=== PATIENT | female | born 1970 | race Caucasian/White ===

== ENCOUNTER 2023-01-27 09:05 | Outpatient (OUT) | payer BC, SELFPAY ==
--- NOTE | 2023-01-27 | XR_ITS ---
The [address] [address] Patient Name: KEISHA VERONICA MRN: [id number] date: 1970 Sex: F Assigned Patient Location: [facility] Current Patient Location: Accession/Order Number: [id number] Exam Date: 01/27/2023 09:07 Report Date: 01/28/2023 07:51 At the request of: ED MERCER Procedure: XR ankle RT min 3V PROCEDURE: XR foot RT min 3V, XR ankle RT min 3V HISTORY: RIGHT FOOT PAIN COMPARISON: XR foot and ankle right 03/25/2022 FINDINGS: BONES:No fracture, acute abnormality, or significant arthropathy. SOFT TISSUES:No visible soft tissue swelling. EFFUSION:None visible. OTHER: Negative. XR/XR ankle RT min 3V IMPRESSION: 1. Stable appearance of right ankle and foot. 2. No acute bone abnormality or significant degenerative changes. Electronically authenticated by: VAL CANTU Date: 01/28/2023 07:51
--- NOTE | 2023-01-27 | XR_ITS ---
The [address] [address] Patient Name: KEISHA VERONICA MRN: [id number] date: 1970 Sex: F Assigned Patient Location: [facility] Current Patient Location: Accession/Order Number: [id number] Exam Date: 01/27/2023 09:07 Report Date: 01/28/2023 07:51 At the request of: ED MERCER Procedure: XR foot RT min 3V PROCEDURE: XR foot RT min 3V, XR ankle RT min 3V HISTORY: RIGHT FOOT PAIN COMPARISON: XR foot and ankle right 03/25/2022 FINDINGS: BONES:No fracture, acute abnormality, or significant arthropathy. SOFT TISSUES:No visible soft tissue swelling. EFFUSION:None visible. OTHER: Negative. XR/XR foot RT min 3V IMPRESSION: 1. Stable appearance of right ankle and foot. 2. No acute bone abnormality or significant degenerative changes. Electronically authenticated by: VAL CANTU Date: 01/28/2023 07:51
== END 2023-01-27 09:06 | disposition home or self-care (01) ==
LOC: RAD 09:05
PROVIDERS: PCP Nurse Practitioner Family; Visit Provider Podiatrist Foot & Ankle Surgery
DX: M79.671 Pain in right foot (principal); M25.571 Pain in right ankle and joints of right foot
CPT/HCPCS: 73610; 73630

== ENCOUNTER 2023-02-03 10:52 | Outpatient (OUT) | payer BC, SELFPAY ==
--- NOTE | 2023-02-03 10:58 | ECG_ITS ---
The [facility] Test Date: 2023-02-03 Pat Name: KEISHA VERONICA Department: Room: - Gender: Female [employer] Grinder: : 1970 Requested By: ED MERCER Order Number: [id number] Reading MD: CRIS CHOUDHARY Measurements Intervals Pandora Rate: 63 P: 27 MO: 171 QRS: 46 QRSD: 96 T: 22 QT: 415 QTc: 426 Interpretive Statements SINUS RHYTHM No previous ECG available for comparison Electronically Signed On 02-04-2023 7:08:48 EDT by CRIS CHOUDHARY
--- NOTE | 2023-02-03 11:57 | PM.PRESUREVA ---
History of Present Illness History of Present Illness Chief complaint: osteocondral defect of right ankle Narrative: Patient presents for preadmission testing. Please see HPI from Dr. Ahn dated 01/27/2023. Review of Systems ROS Narrative Please see ROS from Dr. Ahn dated 01/27/2023. [facility] Medical History (Updated 02/03/23 @ 11:24 by Petty Hanson NP) Ankle impingement syndrome ?M25.879 - Other specified joint disorders, unspecified ankle and foot (ICD-10) Ankle instability ?M25.373 - Other instability, unspecified ankle (ICD-10) Ankle pain ?M25.579 - Pain in unspecified ankle and joints of unspecified foot (ICD-10) Arrhythmia ?I49.9 - Cardiac arrhythmia, unspecified (ICD-10) Arthritis ?M19.90 - Unspecified osteoarthritis, unspecified site (ICD-10) Foot pain ?M79.673 - Pain in unspecified foot (ICD-10) Migraine ?G43.909 - Migraine, unspecified, not intractable, without status migrainosus (ICD-10) 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 - Other specified congenital musculoskeletal deformities (ICD-10) Osteoarthritis of ankle and foot ?M19.079 - Primary osteoarthritis, unspecified ankle and foot (ICD-10) Osteochondral defect of ankle ?M95.8 - Other specified acquired deformities of musculoskeletal system (ICD-10) Peroneal tendinitis ?M76.70 - Peroneal tendinitis, unspecified leg (ICD-10) Traumatic arthritis of ankle ?M12.579 - Traumatic arthropathy, unspecified ankle and foot (ICD-10) Upper respiratory infection (01/23/23) ?J06.9 - Acute upper respiratory infection, unspecified (ICD-10) Surgical History (Updated 02/03/23 @ 11:24 by Petty Hanson NP) History of endometrial ablation ?Z98.890 - Other specified postprocedural states (ICD-10) History of wisdom tooth extraction ?K08.409 - Partial loss of teeth, unspecified cause, unspecified class (ICD-10) Family History (Updated 02/03/23 @ 11:24 by Petty Hanson NP) Other Family history of diabetes mellitus Family history of hypertension Family history of myocardial infarction Family history of stroke Social History (Updated 02/03/23 @ 11:20 by Petty Hanson NP) Within the past year, how often did you have a drink containing alcohol: never Score interpretation: A score less than 3 is consistent with normal alcohol consumption. Smoking status: Never smoker Non-prescribed substance use: denies use Previous occupational history: [employer] Highest level of school completed/degree received: high school graduate Meds Home Medications and Allergies Home Medications Medication Instructions Recorded Confirmed Type glucosamine 375 gw-gnhnqbqdx-qeg tab PO 02/03/23 History no1 500 mg-C 15 mg-lon 0.5 mg tablet (Mhvljhkuydv-Qblttpdufom-TAU Complex) ibuprofen 200 mg tablet (Advil) 200 mg PO Q12H 02/03/23 02/03/23 History sumatriptan succinate 100 mg See Rx Instructions PO .COMPLEX 02/03/23 02/03/23 History tablet (Imitrex) turmeric 400 mg capsule mg PO 02/03/23 History Allergies Allergy/AdvReac Type Severity Reaction Status Date / Time Penicillins Allergy Hives Verified 02/03/23 11:16 red dye Allergy Hives Verified 02/03/23 11:16 Exam Narrative Exam Narrative: Constitutional: Awake, alert, comfortable, well-appearing, nontoxic, interactive, vital signs as charted Head: Normocephalic, atraumatic Eyes: Conjunctiva and lids normal to inspection, pupils normal ENT: Tympanic membranes pearly marley, nonerythematous, noninjected, naris patent, posterior oropharynx clear, oral mucosa moist Neck: Supple, normal appearance, normal range of motion, no meningeal signs, no lymphadenopathy Respiratory: No respiratory distress, breath sounds clear Cardiovascular: Regular rate and rhythm, strong and regular heart tones Psychiatric: Oriented ?3, normal affect Assessment and Plan Assessment and Plan (1) Ankle impingement syndrome: (2) Ankle instability: (3) Ankle pain: (4) Foot pain: (5) Os trigonum: (6) Osteoarthritis of ankle and foot: (7) Osteochondral defect of ankle: (8) Peroneal tendinitis: (9) Traumatic arthritis of ankle: Plan Right subtalar joint fusion with excision of os trigonum, ankle arthroscopy with cartilage repair as needed, possible lateral ankle stabilization and osteotomies, bone graft and soft tissue balancing as needed scheduled with Dr. Ahn 02/08/2023.
[2023-02-03 12:12] LABS: Anion Gap 10.9; BUN Creatinine Ratio 15.4; Carbon Dioxide 27.3 mmol/L (21.0-32.0); Chloride 104 mmol/L (98-107); Estimated GFR (African America >60 (>=60); Estimated GFR (Non-African Ame >60 (>=60); Glucose 94 mg/dL (74-106); Potassium 4.2 mmol/L (3.5-5.1); Sodium 138 mmol/L (136-145)
[2023-02-03 12:14] LABS: SARS-CoV-2 Ag NEGATIVE (NEGATIVE)
[2023-02-03 16:20] LABS: SARS-CoV-2 NAA NOT DETECTED (NOT DETECTE)
== END 2023-02-03 10:53 | disposition home or self-care (01) ==
LOC: PST 10:53
PROVIDERS: PCP Nurse Practitioner Family; Visit Provider Podiatrist Foot & Ankle Surgery
DX: Z01.810 Encounter for preprocedural cardiovascular examination (principal); Z01.812 Encounter for preprocedural laboratory examination; M95.8 Other specified acquired deformities of musculoskeletal system; M19.071 Primary osteoarthritis, right ankle and foot; I10 Essential (primary) hypertension
CPT/HCPCS: 80048; 87635; 87811; 93005; G0463

== ENCOUNTER 2023-02-08 08:12 | Day surgery (SDC) | payer BC, SELFPAY ==
[2023-02-03 11:52] VITALS: BP 143/73; PULSE 64; RESP 18; TEMP 36.3; O2SAT 99; BMI 36.3
[2023-02-08] VITALS (9 sets, daily range): BP systolic 121–152; BP diastolic 63–89; PULSE 67–82; RESP 14–20; TEMP 36.2–36.9; O2SAT 93–97; BMI 35.9
--- NOTE | 2023-02-08 | FL_ITS ---
[address] [address] Patient Name: KEISHA VERONICA MRN: [id number] date: 1970 Sex: F Assigned Patient Location: [facility] Current Patient Location: [facility] Accession/Order Number: [id number] Exam Date: 02/08/2023 08:21 Report Date: 02/09/2023 08:22 At the request of: ED MERCER Procedure: FL fluoroscopy <1hr NON-READ EXAM: FL fluoroscopy <1hr NON-READ HISTORY: TECHNIQUE: FINDINGS: Please see Operative Report. Electronically authenticated by: RADIOLOGIST NO Date: 02/09/2023 08:22
[2023-02-08 06:12] LABS: Basophils Absolute Auto 0.1 10^3/uL (0.0-0.1); Basophils Percent Auto 0.9 % (0.2-2.0); Eosinophils Absolute Auto 0.2 10^3/uL (0.0-0.7); Eosinophils Percent Auto 3.6 % (0.9-7.0); Hematocrit 39.7 % (36.0-48.0); Hemoglobin 13.2 g/dL (12.0-16.0); Immature Granulocytes Abs Auto 0.02 10^3/uL (0.00-0.03); Immature Granulocytes Pct Auto 0.3 % (0.0-0.5); Lymphocytes Absolute Auto 2.2 10^3/uL (1.2-3.8); Mean Corpuscular HGB Conc 33.2 g/dL (29.9-35.2); Mean Corpuscular Hemoglobin 29.4 pg (26.7-34.0); Mean Corpuscular Volume 88.4 fL (81.0-99.0); Mean Platelet Volume 10.6 fL (9.5-13.5); Monocytes Absolute Auto 0.4 10^3/uL (0.3-0.8); Monocytes Percent Auto 6.1 % (1.7-12.0); Neutrophils Absolute Auto 3.8 10^3/uL (1.4-6.5); Neutrophils Percent Auto 56.1 % (43.0-75.0); Platelet Count 266 10^3/uL (150-450); Red Blood Count 4.49 10^6/uL (4.20-5.40); Red Cell Distribution Width 13.4 % (11.0-15.0); White Blood Count 6.7 10^3/uL (4.0-11.0)
[2023-02-08 06:25] LABS: HCG Qualitative NEGATIVE (NEGATIVE)
[2023-02-08 06:58] LABS: Glucometer 92 mg/dL (74-106)
[2023-02-08] MEDS: LACTATED RINGER'S SOLUTION 1,000 ML 50 ML IV (07:10)
[2023-02-08] MEDS: VANCOMYCIN HCL 1,250 MG in 0.9 % SODIUM CHLORIDE 250 ML 250 MG IV (07:36)
--- NOTE | 2023-02-08 07:46 | PC.NURSE ---
07- Final timeout completed. Patient placed on left side and right leg draped in sterile technique per Dr. Hutchins. O2 placed on at 2l/min via nc. Patient placed on monitor. 721- Popliteal block initiated. 723- Right popliteal block completed. Patient tolerated it well. See posted vital signs.
[2023-02-08] MEDS: THROMBIN (RECOMBINANT) 5,000 UNIT VIAL 5000 UNIT TOPICAL (09:43)
--- NOTE | 2023-02-08 10:32 | PM.ORONB ---
Brief Operative Note Date of procedure: 02/08/23 Pre-op diagnosis: right foot/ankle DJD, peroneal tendinopathy, ankle instability Post-op diagnosis: other (right subtalar joint arthrosis, ankle arthritis with osteochondral defect and loose body, os trigonum with ankle impingement, lateral ankle instability and peroneal tendinopathy) Procedure: PROCEDURES PERFORMED: Right subtalar joint fusion, ankle arthroscopic assisted arthroplasty without implant, modified Brostrom-Guillory lateral ankle stabilization, peroneal tendon repair, excision of os trigonum, harvest of bone marrow aspirate concentrate, flexor hallucis longus tenolysis, application of short leg splint and intraoperative fluoroscopy examination INTRAOPERATIVE FINDINGS: Large os trigonum noted posterior to the talus with surrounding inflammatory tissue and impingement of the flexor hallucis longus tendon. Advanced arthritic changes to the posterior facet of the subtalar joint with full-thickness cartilage erosion spanning greater than fifty percent of the joint surface. Bone quality was within normal limits given patient's gender and age. Loose body noted within the tibiotalar joint with cartilage thinning and stable osteochondral defects located on the posterior central and posterior lateral aspects of talar dome. peroneal brevis tendon was severely flattened with intratendinous scar and associated low lying muscle belly extended into the fibular groove. Lateral ankle instability with positive anterior drawer. PROCEDURE IN DETAIL: Patient was identified in preoperative holding by myself at which time the were marked and consent was obtained. Then regional anesthesia was provided by the anesthesia team and preoperative antibiotics were started. Patient is brought back to the operating theater and was intubated with the tourniquet being applied to the right thigh. Then the patient was placed on the operating table in a well-padded prone position. The right lower extremity was prepped and draped in usual sterile fashion. formal timeout was performed. Stab incision was created just medial to the tibial tubercle blunt dissection down to bone was performed. a trocar and cannula were placed into the proximal tibial metaphysis and the trocar was then removed. Syringe was connected to the cannula. Then 60 mL of bone marrow aspirate was obtained. The BMA was then passed off the field to be concentrated with use of a centrifuge. 60 mL of intravenous blood was obtained by anesthesia and also concentrated for platelet rich plasma for later use. The stab incision was closed with nonabsorbable skin suture. the ankle joint was stressed in all planes and a positive anterior drawer was noted. The foot and ankle were exsanguinated and tourniquet was inflated. incision was placed over the posterior lateral ankle and hindfoot between the peroneal and Achilles tendons. Sural nerve was identified and protected throughout the procedure and a combination sharp and blunt dissection with all bleeders being coagulated gained access to the posterior lateral aspect of the tibia talus and calcaneus. Os trigonum was identified noting significant impingement and irritation of the flexor hallucis longus tendon and surrounding inflammatory tissue. The os trigonum was isolated and resected with combination sharp and blunt dissection and passed the back table to be sent the specimen. The FHL tendon was then released of all adhesions and debrided. the incision was extended distally and dissection allowed for full visualization of the posterior aspect of the subtalar joint. A pin distractor was drilled into the talus and calcaneus under fluoroscopic guidance then was used to distract the subtalar joint. The subtalar joint was then prepared for fusion utilizing osteotomes, curettes, rongeurs removing all remaining cartilage. Subchondral bone was then prepared using a small curved osteotome and mallet as well as a 2.0 mm drill. Surgical site was irrigated with copious saline. On the back table 1 mL of bone marrow aspirate concentrate was mixed with 4 cc of Sparc allograft which was then packed into the subtalar joint. The pin distractor was removed. Then a 3 cm incision was placed on the posterior aspect of the heel and blunt dissection was taken down to the calcaneal tuberosity. A guidewire was placed from the tuberosity across the subtalar joint and into the talar body. Position was checked on fluoroscopy and a 6.5 mm Villex bolt/beam was placed accordingly. Slight compression was obtained. Then an additional guidewire and 6.5 mm bolt/beam was placed proximal and parallel to the first. additional compression and stability was obtained. Guidewires were removed after fluoroscopy confirmed placement. Surgical site was irrigated. A pin distractor was then placed across the talus and distal tibia and the pins were placed under fluoroscopy. Inspection of the posterior tibiotalar joint revealed cartilage thinning and osteochondral defects of the posterior central and posterior lateral aspeccts. No unstable defect was noted. Loose body and osteophytes were removed with rongeurs. Then the talus was drilled antegrade and retrograde from the defects for core decompression. site was irrigated with copious saline. Then the remaining BMAc was mixed with allograft and hemostatic agent which was then injected into the subchondral drill holes. the pin distractor was removed and deep fascia was then closed with nonabsorbable suture. Incision was then extended proximally and combination of sharp and blunt dissection while protecting the sural nerve was used to fully expose the peroneal tendon sheath which was meticulously reflected. The longus appeared normal and there is no tendon dislocation with circumduction of the foot. The longus was retracted away to expose the brevis which was severely flattened with irregularities consisting of fibrous scar which was excised sharply. Brevis muscle belly was also excised 2 cm proximal to the fibular groove. Then the brevis was repaired and re-tubularized with absorbable suture. Range of motion showed smooth gliding of the tendons and the brevis muscle belly did not extend into the fibular groove with maximum ankle joint dorsiflexion. a semi-elliptical incision was placed over the tip of the fibular malleolus at its anterior and distal central aspect. Combination sharp and blunt dissection gained access to the anterior talofibular ligament which was regular thin and unstable. Ankle arthrotomy was performed sharply releasing the anterior talofibular ligament from the fibula. Then a rongeur was used to create a trough in the anterior aspect of the fibular malleolus. Two drill holes were placed in the trough created. Two 3.3 mm suture anchors were placed into the drill holes accordingly. the sutures from the anchors were then brought through the distal aspect of the anterior talofibular ligament as well as extensor retinaculum. Once all of the eight sutures were brought through the ATFL and retinaculum the ankle joint was dorsiflexed and everted and the sutures were tied. Then four of the sutures were then brought through the periosteum and soft tissue overlying the fibular malleolus which were also tied while holding the ankle in dorsiflexion and eversion. All sutures were then cut. Anterior drawer was negative. Surgical site was irrigated with copious saline and platelet poor plasma was sprayed onto the soft tissues then the incisions were closed in layers. The tourniquet was deflated with a prompt hyperemic response. A dry sterile dressing consisting of Xeroform on the incisions followed by 4 x 4 gauze, ABDs, and Kerlix were applied. Multiple layers of cast padding were then applied to ensure all bony prominences were well-padded. A plaster posterior splint was then applied which was held in place by Catarino wraps. Capillary refill time to all digits was evaluated and had appropriate response. POSTOPERATIVE PLAN: Discharge home under family's care Post op instructions provided verbally and written prescription(s) were placed in chart NWB operative foot/ankle x6 wks Follow-up in 1 week Implants: Vilex 6.5 mm bolts/beams (x2); Sparc allograft Anesthesia: regional and General-ET Surgeon: Brandon Ahn Pearl Cutter: Nikolas Guy Estimated blood loss (mL): 10 Pathology: other (os trigonum) Condition: stable Disposition: PACU Preoperative Details Reason for procedure: patient is a 52-year-old female who has had long-standing right foot and ankle pain. She initially presented to me nearly 2 years ago and did not respond to nonsurgical care which involved bracing, stretching, physical therapy, shoe and activity modification, OTC ibuprofen/Tylenol. 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 Degenerative changes with osteochondral defects of the tibiotalar joint primarily in the posterior aspect. She also is having symptoms of lateral ankle instability and on MRI her anterior talofibular ligament appeared thin. in addition, there was flattening of the peroneal brevis with low lying muscle belly. We discussed over multiple appointments the potential risks and benefits of surgical reconstruction. I believe she would respond best to subtalar joint fusion with excision of the os trigonum with ligament and tendon repairs as needed. Given the mild to moderate cartilage thinning and degenerative changes to the talus as well as a loose body I believed joint sparing procedure would be ideal however she was educated that it is possible that she would require ankle replacement versus fusion in the future. she wished to proceed with surgical reconstruction and written and verbal consent was obtained.
--- NOTE | 2023-02-08 11:13 | XR_ITS ---
The [address] [address] Patient Name: KEISHA VERONICA MRN: [id number] date: 1970 Sex: F Assigned Patient Location: [facility] Current Patient Location: [facility] Accession/Order Number: [id number] Exam Date: 02/08/2023 12:05 Report Date: 02/09/2023 07:04 At the request of: MIGDALIA WALKER Procedure: XR foot RT min 3V EXAM: XR foot RT min 3V HISTORY: Postop x-ray PACU COMPARISON: 01/27/2023 TECHNIQUE: Routine views of the XR foot RT min 3V FINDINGS/ XR/XR foot RT min 3V IMPRESSION: 1. Splinted foot. No acute fractures. Small plantar calcaneal spur. 2. Unremarkable splinter foot soft tissues. 3. Post surgical fusion at the talocalcaneal joint. Maintained alignment without evidence for hardware complication. Electronically authenticated by: DIONISIO BARBOUR Date: 02/09/2023 07:04
--- NOTE | 2023-02-08 11:13 | XR_ITS ---
The [address] [address] Patient Name: KEISHA VERONICA MRN: [id number] date: 1970 Sex: F Assigned Patient Location: [facility] Current Patient Location: [facility] Accession/Order Number: [id number] Exam Date: 02/08/2023 12:05 Report Date: 02/08/2023 22:33 At the request of: MIGDALIA WALKER Procedure: XR ankle RT min 3V CLINICAL HISTORY: Postop x-ray PACU. EXAMINATION: Right ankle: 01/08/2023. COMPARISON: Right ankle 01/27/2023. FINDINGS: There are 2 cortical screws extending from the base of the calcaneus extending the talocalcaneal joint with the tips in the calcaneus. There is overlying cast. No acute fractures or dislocations are seen. There is an enthesophyte at the insertion site of plantar aponeurosis. There are no abnormal calcifications. XR/XR ankle RT min 3V IMPRESSION: 1. There are 2 cortical screws extending from base of the calcaneus to the talus transfixing the talocalcaneal joint. 2. Some degenerative changes at the ankle mortise as well as talocalcaneal joint. 3. No significant interval change otherwise Electronically authenticated by: JOSE A ALMAGUER Date: 02/08/2023 22:33
[2023-02-08 11:16] LABS: Glucometer 126 mg/dL (74-106)
--- NOTE | 2023-02-08 11:18 | PC.NURSE ---
patient has a bruise present on her left eye near her nose. Anesthesia made aware. Anesthesia not concerned and informed the patient of the bruise being present at this time.
== END 2023-02-08 12:03 | disposition home or self-care (01) ==
PROVIDERS: PCP Nurse Practitioner Family; Visit Provider Podiatrist Foot & Ankle Surgery
PROC: (CPT 27675; principal; 2023-02-08 07:30)
DX: M19.071 Primary osteoarthritis, right ankle and foot (principal); M95.8 Other specified acquired deformities of musculoskeletal system; I10 Essential (primary) hypertension; I49.9 Cardiac arrhythmia, unspecified; M25.871 Other specified joint disorders, right ankle and foot; M25.371 Other instability, right ankle; M93.271 Osteochondritis dissecans, right ankle and joints of right foot; M21.861 Other specified acquired deformities of right lower leg
CPT/HCPCS: 27675; 27680; 27700; 28120; 28725; 36415; 64445; 73610; 73630; 76000; 76942; 82948; 84703; 85025; 88304; 88311; C1713; J2704; J3370

== ENCOUNTER 2023-03-03 13:39 | Outpatient (OUT) | payer BC, SELFPAY ==
--- NOTE | 2023-03-03 | XR_ITS ---
The [address] [address] Patient Name: KEISHA VERONICA MRN: [id number] date: 1970 Sex: F Assigned Patient Location: [facility] Current Patient Location: [facility] Accession/Order Number: [id number] Exam Date: 03/03/2023 13:46 Report Date: 03/05/2023 11:07 At the request of: ED MERCER Procedure: XR foot RT min 3V PROCEDURE: XR foot RT min 3V HISTORY: RIGHT FOOT PAIN COMPARISON: XR foot right 02/08/2023 FINDINGS: BONES:Mechanical fusion of the talocalcaneal joint via 2 lag screws. No hardware fracture loosening. No bone fracture or dislocation. Mild degenerative changes of the midfoot. Small calcaneal plantar spur. SOFT TISSUES:Distal dorsal soft tissue swelling. Cast material has been removed. EFFUSION:None visible. OTHER: Negative. XR/XR foot RT min 3V IMPRESSION: 1. Stable surgical changes without evidence of hardware failure or change in alignment. Electronically authenticated by: VAL CANTU Date: 03/05/2023 11:07
--- NOTE | 2023-03-03 | XR_ITS ---
[address] [address] Patient Name: KEISHA VERONICA MRN: [id number] date: 1970 Sex: F Assigned Patient Location: [facility] Current Patient Location: Accession/Order Number: [id number] Exam Date: 03/03/2023 13:46 Report Date: 03/04/2023 23:36 At the request of: ED MERCER Procedure: XR ankle RT min 3V EXAM: XR ankle RT min 3V HISTORY: RIGHT ANKLE PAIN COMPARISON: Right ankle radiographs 02/08/2023 TECHNIQUE: 3 views right ankle FINDINGS: Talocalcaneal arthrodesis without evidence of hardware complication. The tibiotalar joint is congruent. No acute fracture or aggressive osseous abnormality. Plantar fascia and Achilles tendon enthesophytes are noted. Mild soft tissue swelling of the ankle. Degenerative changes of the tibiotalar joint are noted. XR/XR ankle RT min 3V IMPRESSION: Subtalar joint arthrodesis without hardware complication. Electronically authenticated by: JOHAN HICKS Date: 03/04/2023 23:36
== END 2023-03-03 13:40 | disposition home or self-care (01) ==
LOC: RAD 13:39
PROVIDERS: PCP Nurse Practitioner Family; Visit Provider Podiatrist Foot & Ankle Surgery
DX: M25.571 Pain in right ankle and joints of right foot (principal)
CPT/HCPCS: 73610; 73630

== ENCOUNTER 2023-03-24 13:56 | Outpatient (OUT) | payer BC, SELFPAY ==
--- NOTE | 2023-03-24 | XR_ITS ---
The [address] [address] Patient Name: KEISHA VERONICA MRN: [id number] date: 1970 Sex: F Assigned Patient Location: [facility] Current Patient Location: Accession/Order Number: [id number] Exam Date: 03/24/2023 14:15 Report Date: 03/25/2023 07:22 At the request of: ED MERCER Procedure: XR ankle RT min 3V PROCEDURE: XR ankle RT min 3V and XR foot RT min 3V DATE: 03/24/2023 1:15 PM ACETYLENE CYLINDER PACKING MIXER COMPARISONS: 03/03/2023 CLINICAL INDICATION: RIGHT ANKLE PAIN FINDINGS: There is no evidence of fractures or other acute osseous abnormalities. Talocalcaneal arthrodesis is again identified, stable from previous exam. Postop hardware appears intact and stable. There is mild first metatarsal phalangeal degenerative change, stable. There is slight hallux valgus deformity, stable. The mid and forefoot show no other abnormalities. There is slight spurring of the distal fibula and medial malleolus, stable. There is slight hypertrophic osseous change along the medial and lateral talus, stable possibly related to the previous surgery. XR/XR ankle RT min 3V IMPRESSION: Stable postop changes of the hindfoot. Foot and ankle radiographs remain completely stable from 03/03/2023. Electronically authenticated by: TALIA NGUYEN Date: 03/25/2023 07:22
--- NOTE | 2023-03-24 | XR_ITS ---
The [address] [address] Patient Name: KEISHA VERONICA MRN: [id number] date: 1970 Sex: F Assigned Patient Location: [facility] Current Patient Location: Accession/Order Number: [id number] Exam Date: 03/24/2023 14:15 Report Date: 03/25/2023 07:23 At the request of: ED MERCER Procedure: XR foot RT min 3V PROCEDURE: XR ankle RT min 3V and XR foot RT min 3V DATE: 03/24/2023 1:15 PM TOOL STRAIGHTENER COMPARISONS: 03/03/2023 CLINICAL INDICATION: RIGHT ANKLE PAIN FINDINGS: There is no evidence of fractures or other acute osseous abnormalities. Talocalcaneal arthrodesis is again identified, stable from previous exam. Postop hardware appears intact and stable. There is mild first metatarsal phalangeal degenerative change, stable. There is slight hallux valgus deformity, stable. The mid and forefoot show no other abnormalities. There is slight spurring of the distal fibula and medial malleolus, stable. There is slight hypertrophic osseous change along the medial and lateral talus, stable possibly related to the previous surgery. XR/XR foot RT min 3V IMPRESSION: Stable postop changes of the hindfoot. Foot and ankle radiographs remain completely stable from 03/03/2023. Electronically authenticated by: TALIA NGUYEN Date: 03/25/2023 07:23
== END 2023-03-24 13:57 | disposition home or self-care (01) ==
LOC: RAD 13:56
PROVIDERS: PCP Nurse Practitioner Family; Visit Provider Podiatrist Foot & Ankle Surgery
DX: M19.071 Primary osteoarthritis, right ankle and foot (principal)
CPT/HCPCS: 73610; 73630

== ENCOUNTER 2023-04-14 14:17 | Outpatient (OUT) | payer BC, SELFPAY ==
--- NOTE | 2023-04-14 | XR_ITS ---
[address] [address] Patient Name: KEISHA VERONICA MRN: [id number] date: 1970 Sex: F Assigned Patient Location: [facility] Current Patient Location: Accession/Order Number: [id number] Exam Date: 04/14/2023 14:57 Report Date: 04/15/2023 07:18 At the request of: ED MERCER Procedure: XR ankle RT min 3V PROCEDURE: XR ankle RT min 3V COMPARISON: 03/24/2023 HISTORY: RIGHT ANKLE PAIN FINDINGS: BONES:Stable subtalar fusion using 2 cannulated screws. No acute fracture, dislocation or mechanical failure. Stable moderate degenerative changes with joint space narrowing and marginal osteophyte formation. Enthesopathic spurring of the calcaneus SOFT TISSUES:Negative. No visible soft tissue swelling. EFFUSION:None visible. OTHER: Negative. XR/XR ankle RT min 3V IMPRESSION: Stable subtalar fusion Electronically authenticated by: EPIFANIO VAUGHAN Date: 04/15/2023 07:18
--- NOTE | 2023-04-14 | XR_ITS ---
The [address] [address] Patient Name: KEISHA VERONICA MRN: [id number] date: 1970 Sex: F Assigned Patient Location: [facility] Current Patient Location: [facility] Accession/Order Number: [id number] Exam Date: 04/14/2023 14:57 Report Date: 04/14/2023 20:13 At the request of: ED MERCER Procedure: XR foot RT min 3V EXAM: XR foot RT min 3V HISTORY: RIGHT FOOT PAIN COMPARISON: 03/24/2023 TECHNIQUE: 3 views of the right foot were obtained. FINDINGS: There is no evidence of an acute fracture or dislocation. Again seen is evidence of a prior fusion between the posterior aspect of the talus and the calcaneus, fixated with long screws. Mild hallux valgus deformity is seen at the first metatarsophalangeal joint. Remainder of the joint spaces are relatively intact. An osteophyte arises from the plantar aspect of the calcaneus. No significant soft tissue swelling is identified. XR/XR foot RT min 3V IMPRESSION: No acute fracture or dislocation. Postsurgical changes are present with screws in place. An osteophyte arises from the plantar aspect of the calcaneus. The overall appearance is essentially unchanged. Electronically authenticated by: ED HOPE Date: 04/14/2023 20:13
--- OUTSIDE RECORDS SUMMARY | 2023-04-14 14:19 | XMS_ITS | CCD ---
Author Name Unknown Address [facility] [employer] [address] [place] [address] Organization [facility] Care Team Providers Care Traffic Control Signaler Name Role Phone ED MERCER Admitting Unavailable ED MERCER Attending Unavailable ALONDRA, DR VAL Lin Consulting Unavailable ED MERCER Consulting Unavailable ED MERCER Admitting Unavailable ED MERCER Attending Unavailable ALONDRA, DR VAL Lin Consulting Unavailable ED MERCER Consulting Unavailable ED MERCER Admitting Unavailable ED MERCER Attending Unavailable Problems Problem Classification Problem Date Documented Da te Episodic/Chronic Other connective tissue disease (4 sources) Pain in right foot; Translations: [PAIN IN RIGHT FOOT] Onset: 03-25-2022 Episodic Other non-traumatic joint disorders (5 sources) Pain in right ankle and joints of right foot; Translations: [PAIN IN RIGHT ANKLE] Onset: 05-01-2021 Episodic Encounters Encounter Date Encounter Type Care Provider Facility Start: 03-25-2022 End: 03-26-2022 ambulatory ED MERCER Facility:[facility] Start: 06-26-2021 ambulatory ED MERCER Faci lity:[facility]1 Start: 05-01-2021 End: 05-02-2021 ambulatory ED LYNCHTENISHA Facility:[facility]1 Payers Date Payer Category Payer Unknown [id number] .[id number] 1970 Unknown [id number] .[id number] 1970 Unknown [id number] [id number] 1958 Unknown [id number] Clinical Note 03-26-2022 Note Date & Type Note Facility 03-26-2022 Note PROCEDURE: XR ANKLE RT MIN 3 VIEWS, XR FOOT RT MIN 3 VIEWS HISTORY: Pain of right ankle joint ; chronic right heel pain, lateral right ankle pain COMPARISON: XR ankle right 05/01/2021 FINDINGS: BONES:Small, corticated ossification distal to the lateral malleolus and distal to the medial malleolus favoring sequela of remote injuries. Small calcaneal plantar spur. Mild bunion formation. SOFT TISSUES:No visible soft tissue swelling. EFFUSION:None visible. OTHER: Negative. IMPRESSION: 1. Mild bunion formation. 2. No acute bone abnormality or appreciable degenerative joint disease other than bunion formation. Electronically authenticated by: VAL CANTU Date: 2022-03-26 11:24 The [facility] Clinical Note 03-26-2022 Note Date & Type Note Facility 03-26-2022 Note PROCEDURE: XR ANKLE RT MIN 3 VIEWS, XR FOOT RT MIN 3 VIEWS HISTORY: Pain of right ankle joint ; chronic right heel pain, lateral right ankle pain COMPARISON: XR ankle right 05/01/2021 FINDINGS: BONES:Small, corticated ossification distal to the lateral malleolus and distal to the medial malleolus favoring sequela of remote injuries. Small calcaneal plantar spur. Mild bunion formation. SOFT TISSUES:No visible soft tissue swelling. EFFUSION:None visible. OTHER: Negative. IMPRESSION: 1. Mild bunion formation. 2. No acute bone abnormality or appreciable degenerative joint disease other than bunion formation. Electronically authenticated by: VAL CANTU Date: 2022-03-26 11:24 The [facility] Clinical Note 05-01-2021 Note Date & Type Note Facility 05-01-2021 Note PROCEDURE: XR ANKLE RT MIN 3 VIEWS HISTORY: Pain of right ankle joint COMPARISON: None. FINDINGS: BONES:Small, round corticated ossification adjacent to the medial malleolus favoring sequela of remote injury. No fracture, dislocation, articular surface irregularity or joint space narrowing. Calcaneal plantar spur. SOFT TISSUES:No visible soft tissue swelling. EFFUSION:None visible. OTHER: Negative. IMPRESSION: 1. No acute bone abnormality or significant degenerative joint disease. Electronically authenticated by: VAL CANTU Date: 2021-05-01 10:32 The [facility] Summary Purpose Family History No Family History Records Found Advance Directives No Advanced Directives Records Found Additional Source Comments INFORMATION SOURCE (unrecogn ized section and content) DATE CREATED AUTHOR 04/02/2022 The [facility] FOR RECORDS PERTAINING TO PATIENTS WHO ARE OR HAVE BEEN ENROLLED IN A CHEMICAL DEPENDENCY/SUBSTANCEABUSE PROGRAM, SOME INFORMATION MAY BE OMITTED. This clinical summary was aggregated from multiple sources. Caution should be exercised in using it in the provision of clinical care. This summary normalizes information from multiple sources, and as a consequence, information in this document may materially change the coding, format and clinical context of patient data. In addition, data may be omitted in some cases. CLINICAL DECISIONS SHOULD BE BASED ON THE PRIMARY CLINICAL RECORDS. [employer] provides no warranty or guarantee of the accuracy or completeness of information in this document.
== END 2023-04-14 14:18 | disposition home or self-care (01) ==
LOC: RAD 14:17
PROVIDERS: PCP Nurse Practitioner Family; Visit Provider Podiatrist Foot & Ankle Surgery
DX: M25.571 Pain in right ankle and joints of right foot (principal)
CPT/HCPCS: 73610; 73630

== ENCOUNTER 2023-05-20 09:19 | Outpatient (OUT) | payer BC, SELFPAY ==
--- NOTE | 2023-05-20 | XR_ITS ---
The [address] [address] Patient Name: KEISHA VERONICA MRN: [id number] date: 1970 Sex: F Assigned Patient Location: [facility] Current Patient Location: [facility] Accession/Order Number: [id number] Exam Date: 05/20/2023 09:20 Report Date: 05/20/2023 10:25 At the request of: SUN [place] Procedure: XR ankle RT min 3V PROCEDURE: XR ankle RT min 3V HISTORY: RIGHT ANKLE PAIN COMPARISON: XR ankle right 04/14/2023 FINDINGS: BONES:Prior talocalcaneal fusion via 2 lag screws; no evidence of hardware fracture or loosening. No bone fracture dislocation. Intact ankle joint without significant narrowing. SOFT TISSUES:No visible soft tissue swelling. EFFUSION:None visible. OTHER: Negative. XR/XR ankle RT min 3V IMPRESSION: 1. Stable surgical changes without evidence of hardware failure or change in alignment. 2. No acute abnormality or appreciable change. Electronically authenticated by: VAL CANTU Date: 05/20/2023 10:25
--- OUTSIDE RECORDS SUMMARY | 2023-05-20 09:26 | XMS_ITS | CCD ---
Author Name Unknown Address [facility] [employer] [address] [place] [address] Organization [facility] Care Team Providers Care Electrical Line Worker Name Role Phone ED MERCER Admitting Unavailable [...] Facility:H1 Payers Date Payer Category Payer Unknown [id number] .[id number] 1970 Unknown [id number] .[id number] [id number] 1970 Unknown [id number] 2.16.84 [id number] 1958 Unknown [id number] Clinical Note 03-26-2022 Note Date & Type [...] by: VAL CANTU Date: 2022-03-26 11:24 The [facility] Clinical Note 03-26-2022 Note Date & [...] by: VAL CANTU Date: 2022-03-26 11:24 The [facility] Clinical Note 05-01-2021 Note Date & [...] by: VAL CANTU Date: 2021-05-01 10:32 The [facility] Summary Purpose Family History No Family History Records Found Advance Directives No Advanced Directives Records Found Additional Source Comments INFORMATION SOURCE (unrecogn ized section and content) DATE CREATED AUTHOR 04/02/2022 The [facility] FOR RECORDS PERTAINING TO PATIENTS WHO ARE [...] BE BASED ON THE PRIMARY CLINICAL RECORDS. [employer] provides no warranty or guarantee of the accuracy or completeness of information in this document.
== END 2023-05-20 09:20 | disposition home or self-care (01) ==
LOC: RAD 09:19
PROVIDERS: PCP Nurse Practitioner Family; Visit Provider Physician Assistant
DX: M25.571 Pain in right ankle and joints of right foot (principal); Z98.890 Other specified postprocedural states
CPT/HCPCS: 73610

== ENCOUNTER 2023-08-11 08:37 | Outpatient (OUT) | payer BC, SELFPAY ==
--- NOTE | 2023-08-11 | XR_ITS ---
[address] [address] Patient Name: KEISHA VERONICA MRN: [id number] date: 1970 Sex: F Assigned Patient Location: Current Patient Location: Accession/Order Number: [id number] Exam Date: 08/11/2023 13:45 Report Date: 08/11/2023 14:25 At the request of: ED MERCER Procedure: XR ankle RT min 3V PROCEDURE: XR ankle RT min 3V COMPARISON: 05/20/2023 HISTORY: RIGHT ANKLE PAIN FINDINGS: BONES:Stable subtalar fusion. No acute fracture or dislocation. No mechanical failure. Subchondral degenerative changes of the talus with likely osteochondral injury of the lateral talar dome. Joint space narrowing and marginal osteophyte formation. SOFT TISSUES:Mild soft tissue swelling EFFUSION:None visible. OTHER: Negative. XR/XR ankle RT min 3V IMPRESSION: Stable subtalar arthrodesis Stable osteochondral injury lateral talar dome Electronically authenticated by: EPIFANIO VAUGHAN Date: 08/11/2023 14:25
--- OUTSIDE RECORDS SUMMARY | 2023-08-11 08:53 | XMS_ITS | CCD ---
Author Organization [facility] Care Team Providers Care Drywall Application Supervisor Name Role Phone DE MERCER Admitting Unavailable ED MERCER Attending Unavailable [...] lity:H1 Start: 05-01-2021 End: 05-02-2021 ambulatory ED MERCER Facility:H1 Payers Date Payer Category Payer Unknown [id number] [id number] 1970 Unknown [id number] [id number] 1970 Unknown [id number] [id number] 1958 Unknown [id number] Clinical Note 03-26-2022 Note Date & Type [...] by: VAL CANTU Date: 2022-03-26 11:24 The [facility] Clinical Note 03-26-2022 Note Date & Type [...] by: VAL CANTU Date: 2022-03-26 11:24 The [facility] Clinical Note 05-01-2021 Note Date & Type [...] by: VAL CANTU Date: 2021-05-01 10:32 The [facility] Summary Purpose Family History No Family History Records Found Advance Directives No Advanced Directives Records Found Additional Source Comments INFORMATION SOURCE (unrecogn ized section and content) DATE CREATED AUTHOR 04/02/2022 The [facility] FOR RECORDS PERTAINING TO PATIENTS WHO ARE [...] BE BASED ON THE PRIMARY CLINICAL RECORDS. [facility] [employer] [facility]. provides no warranty or guarantee of the accuracy or completeness of information in this document.
== END 2023-08-11 08:38 | disposition home or self-care (01) ==
LOC: EC 08:38
PROVIDERS: PCP Nurse Practitioner Family; Visit Provider Podiatrist Foot & Ankle Surgery
DX: M19.071 Primary osteoarthritis, right ankle and foot (principal); Z98.890 Other specified postprocedural states
CPT/HCPCS: 73610

== ENCOUNTER 2024-02-09 12:50 | Outpatient (OUT) | payer BC, SELFPAY ==
--- NOTE | 2024-02-09 | XR_ITS ---
The [address] [address] Patient Name: KEISHA VERONICA MRN: [id number] date: 1970 Sex: F Assigned Patient Location: [facility] Current Patient Location: Accession/Order Number: [id number] Exam Date: 02/09/2024 12:45 Report Date: 02/14/2024 07:54 At the request of: ED MERCER Procedure: XR ankle RT min 3V PROCEDURE: XR ankle RT min 3V COMPARISON: 08/11/2023 HISTORY: Pain FINDINGS: BONES:Stable subtalar joint fusion with 2 screws. No mechanical failure. No significant interval bone formation or bony bridging. Stable degenerative changes with enthesopathic spurring of the calcaneus SOFT TISSUES:Negative. No visible soft tissue swelling. EFFUSION:None visible. OTHER: Negative. XR/XR ankle RT min 3V IMPRESSION: Stable subtalar fusion with no significant bone formation Electronically authenticated by: EPIFANIO VAUGHAN Date: 02/14/2024 07:54
--- OUTSIDE RECORDS SUMMARY | 2024-02-09 13:10 | XMS_ITS | CCD ---
Author Organization [facility] Care Team Providers Care Medicare Nurse Name Role Phone ED MERCER Admitting Unavailable [...] Facility Start: 03-25-2022 End: 03-26-2022 ambulatory ED Dick SYLVIE Facility:H1 Start: 06-26-2021 ambulatory ED LYNCHTENISHA Faci lity:H1 Start: 05-01-2021 End: 05-02-2021 ambulatory ED Dick SYLVIE Facility:H1 Payers Date Payer Category Payer Unknown [id number] 1970 Unknown [id number] [id number] 1970 Unknown [id number] 1958 Unknown [id number] Clinical Note 03-26-2022 Note Date & Type [...] by: VAL CANTU Date: 2022-03-26 11:24 The [facility] Clinical Note 03-26-2022 Note Date & [...] by: VAL CANTU Date: 2022-03-26 11:24 The [facility] Clinical Note 05-01-2021 Note Date & [...] by: VAL CANTU Date: 2021-05-01 10:32 The [facility] Summary Purpose Family History No Family History Records Found Advance Directives No Advanced Directives Records Found Additional Source Comments INFORMATION SOURCE (unrecogn ized section and content) DATE CREATED AUTHOR 04/02/2022 [facility] FOR RECORDS PERTAINING TO PATIENTS WHO [...] BE BASED ON THE PRIMARY CLINICAL RECORDS. [facility] [employer] [facility]. provides no warranty or guarantee of the accuracy or completeness of information in this document.
== END 2024-02-09 12:51 | disposition home or self-care (01) ==
LOC: RAD 12:51
PROVIDERS: PCP Nurse Practitioner Family; Visit Provider Podiatrist Foot & Ankle Surgery
DX: M25.571 Pain in right ankle and joints of right foot (principal); M24.671 Ankylosis, right ankle
CPT/HCPCS: 73610